=== PATIENT | male | born 1995 | race African-American/Black ===

== ENCOUNTER 2023-03-05 10:18 | Emergency (ER) | payer SELFPAY ==
[2023-03-05 10:30] VITALS: BP 143/86; PULSE 48; RESP 16; TEMP 36.2; O2SAT 100
[2023-03-05 10:56] LABS: Basophils Percent Auto 0.5 % (0.2-1.2); Eosinophils Percent Auto 0.4 % (0-4.4); Hematocrit 49.6 % (42.0-52.0); Hemoglobin 16.3 g/dL (14.0-18.0); Immature Granulocyte Absolute 0.04 K/mm3 (0.00-0.031); Immature Granulocyte Percent A 0.5 % (0-0.5); Lymphocytes Absolute Auto 2.23 K/mm3 (0.9-3.2); Lymphocytes Percent Auto 27.3 % (18.3-44.2); Mean Corpuscular HGB Conc 32.9 g/dl (32-36); Mean Corpuscular Volume 88.3 fl (80-100); Mean Platelet Volume 9.1 fl (7.4-10.4); Monocytes Absolute Auto 0.5 K/mm3 (0.1-0.6); Monocytes Percent Auto 5.5 % (2.6-8.5); Neutrophils Absolute Auto 5.4 K/mm3 (1.3-6.7); Neutrophils Percent Auto 65.8 % (45.5-73.1); Platelet Count Result 366 k/mm3 (150-375); Red Blood Count 5.62 M/mm3 (4.6-6.20); Red Cell Distribution Width 13.2 % (11.5-14.5); White Blood Count 8.2 K/mm3 (4.5-10.0)
[2023-03-05 10:59] LABS: Alanine Aminotransferase 28 U/L (6-50); Albumin Level 5.4 g/dL (3.5-5.1); Alkaline Phosphatase 76 U/L (38-126); Anion Gap 12 mmol/L (8-16); Aspartate Amino Transferase 36 U/L (17-59); Bilirubin,Total 0.9 mg/dL (0.2-1.3); Blood Urea Nitrogen 11 mg/dL (9-20); Calcium 9.9 mg/dL (8.4-10.2); Carbon Dioxide 26 mmol/L (22-30); Chloride 102 mmol/L (98-107); Estimated CRCL calculation 79 ml/min; Estimated Glomerular Filt Rate > 60; Glucose 84 mg/dL (65-110); Lipase 59 U/L (23-300); Potassium 4.3 mmol/L (3.4-5.0); Sodium 140 mmol/L (137-145)
--- NOTE | 2023-03-05 12:08 | ED.ABDPAIN ---
HPI - Abdominal Pain General Chief Complaint: Abdominal Pain Stated Complaint: abd pain Time Seen by Provider: 03/05/23 12:02 History of Present Illness HPI narrative: Patient is a 27-year-old male who presents ER with cramping abdominal pain. Began yesterday evening. Located in the left upper quadrant. No radiation into the groin. Associate with nausea vomiting as well as diarrhea. No known sick contacts. No blood in stool. Denies fevers or chills or sweats. No alleviating factors. Related Data Allergies Allergy/AdvReac Type Severity Reaction Status Date / Time No Known Allergies Allergy Verified 03/05/23 13:11 Review of Systems Review of Systems: All systems reviewed & are unremarkable except as noted in HPI and below Constitutional: Constitutional: Denies chills, Denies fatigue and Denies fever(s) Cardiovascular: Cardiovascular: Denies chest pain and Denies rapid heart rate Respiratory: Respiratory: Denies cough and Denies dyspnea Gastrointestinal: Gastrointestinal: Reports abdominal pain, Reports diarrhea, Reports nausea and Reports vomiting Genitourinary: Genitourinary: Denies hematuria, Denies dysuria, Denies testicular pain and Denies urinary frequency PMFSH Past Medical History Medical History (Updated 03/05/23 @ 15:25 by Kenney Moran MD) Healthy adult male Surgical History Surgical History (Updated 03/05/23 @ 15:25 by Kenney Moran MD) No history of previous surgery Exam Narrative: GENERAL: Well-appearing, well-nourished, and in no acute distress. HEAD: Normocephalic, atraumatic. ENT: Mucous membranes moist. CHEST: Clear to auscultation. No respiratory distress. HEART: Regular rate and rhythm. Normal peripheral pulses. ABDOMEN: Soft, nontender, nondistended. EXTREMITIES: Normal range of motion. No edema. SKIN: Warm, dry, no rash. NEURO: Alert and oriented x3. PSYCH: Normal mood and affect. Course Course Emergency Course: Symptoms resolved with IV fluids/morphine/Zofran. Labs reviewed and patient with benign abdominal exam. Premier appropriate for discharge home. Suspect gastroenteritis and patient has been educated about treatment plan. Vital Signs Vital signs: Vital Signs Temperature 97.1 F L 03/05/23 10:30 Pulse Rate 48 L 03/05/23 10:30 Respiratory Rate 16 07/20/23 10:30 Blood Pressure 143/86 H 03/05/23 10:30 Pulse Oximetry 100 03/05/23 10:30 Oxygen Delivery Room Air 03/05/23 10:30 Temperature 97.1 F L 03/05/23 10:30 Pulse Rate 48 L 03/05/23 10:30 Respiratory Rate 16 03/05/23 10:30 Blood Pressure 143/86 H 03/05/23 10:30 Pulse Oximetry 100 03/05/23 10:30 Oxygen Delivery Room Air 03/05/23 10:30 MDM - Abdominal Pain Lab Data 03/05/23 10:42 03/05/23 10:42 Labs: Lab Results 03/05/23 03/05/23 Range/Units 10:42 12:23 WBC 8.2 (4.5-10.0) K/mm3 RBC 5.62 (4.6-6.20) M/mm3 Hgb 16.3 (14.0-18.0) g/dL Hct 49.6 (42.0-52.0) % MCV 88.3 (80-100) fl MCH 29.0 (26-34) pg MCHC 32.9 (32-36) g/dl RDW 13.2 (11.5-14.5) % Plt Count 366 (150-375) k/mm3 MPV 9.1 (7.4-10.4) fl Immature Gran % (Auto) 0.5 (0-0.5) % Neut % (Auto) 65.8 (45.5-73.1) % Lymph % (Auto) 27.3 (18.3-44.2) % [place] % (Auto) 5.5 (2.6-8.5) % Eos % (Auto) 0.4 (0-4.4) % Baso % (Auto) 0.5 (0.2-1.2) % Lymph # (Auto) 2.23 (0.9-3.2) K/mm3 [place] # (Auto) 0.5 (0.1-0.6) K/mm3 Eos # (Auto) 0.0 (0-0.3) K/mm3 Baso # (Auto) 0.0 (0.0-0.1) K/mm3 Abs Immat Gran (auto) 0.04 H (0.00-0.031) K/mm3 Absolute Neuts (auto) 5.4 (1.3-6.7) K/mm3 Absolute Nucleated RBC 0.0 (0.0-0.012) K/mm3 Nucleated RBC % 0.0 (0.0-0.2) % Sodium 140 (137-145) mmol/L Potassium 4.3 (3.4-5.0) mmol/L Chloride 102 (98-107) mmol/L Carbon Dioxide 26 (22-30) mmol/L Anion Gap 12 (8-16) mmol/L BUN 11 (9-20) mg/dL Creatinine 1.10 (0.7-1.3) mg/dL Estim Creat Clear C
[2023-03-05 12:33] LABS: Appearance Urine Clear (Clear); Bacteria Urine None Seen /hpf; Bilirubin Urine Negative (Negative); Blood Urine Negative (Negative); Color Urine Yellow (Yellow); Glucose Urine UA Negative (Negative); Ketones Urine 3+ mg/dL (Negative); Leukocyte Esterase Ur Negative LEU/UL (Negative); Nitrate Urine Negative (Negative); Non Pathogenic Casts 0-2; Protein Urine 2+ mg/dL (Negative); RBC Urine 0-2 /hpf (0-2); Specific Grav Ur 1.029 (1.001-1.035); Squamous Epithelial Cell Urine None seen /hpf (Few); WBC Urine 0-5 /hpf; pH Urine 5.5 (5.0-9.0)
[2023-03-05 12:40] LABS: Add Urine Microscopic? YES
[2023-03-05] MEDS: SODIUM CHLORIDE 0.9% IV 1,000 ML 999 ML IV CONT (13:12)
[2023-03-05] MEDS: ONDANSETRON INJ 4 MG/2 ML VIAL IV PUSH (13:13)
[2023-03-05] MEDS: Please add drug allergy info to patient profile. XX (13:13)
[2023-03-05] MEDS: MORPHINE SULFATE (*CRX) 4 MG/ML INJ IV PUSH (13:13)
== END 2023-03-05 15:35 | disposition home or self-care (01) ==
PROVIDERS: Emergency Medicine; Emergency Provider Emergency Medicine
DX: K52.9 Noninfective gastroenteritis and colitis, unspecified (principal)
CPT/HCPCS: 36415; 80053; 81001; 83690; 85025; 96361; 96374; 96375; 99284; J2270; J2405; J7030

== ENCOUNTER 2023-03-14 21:11 | Emergency (ER) | payer SELFPAY ==
--- NOTE | ~2023-03-14 | CT_ITS ---
EXAMINATION: CT abdomen pelvis w con DATE: 03/15/2023 02:04 INDICATION: Left abdominal pain for one week. Nausea, vomiting, constipation TECHNIQUE: Computed tomography (CT) of the abdomen and pelvis was performed with 100 CC Omnipaque 350 intravenous contrast. Automated exposure control and iterative reconstruction technique were employe d. Exam dose: 211.86 mGy-cm total exam DLP. COMPARISON: None. FINDINGS: The lung bases are clear. Normal heart size. No pericardial or pleural effusion. The liver, gallbladder, bile ducts, spleen, pancreas, pancreatic duct, and adrenal glands and kidneys are unremarkable except for probable small cysts upper pole left renal cyst. No urinary tract calcul us or hydroureteronephrosis is detected. The urinary bladder is unremarkable. There are multiple nondilated fluid containing small bowel segments in the lower abdomen and pelvic a petra. No bowel obstruction, bowel wall thickening, pneumatosis or intraperitoneal free air is detected . No appendiceal dilatation or inflammatory change in the right lower quadrant is noted. Included skeletal structures are unremarkable. IMPRESSION: Nondilated fluid containing small bowel segments which may be secondary to enteritis or mild adynamic ileus. No evidence of appendicitis is detected Reviewed, dictated and finalized at [facility]. Reviewed, dictated and finalized at [facility]. IMPRESSION: Nondilated fluid containing small bowel segments which may be seco ndary to enteritis or mild adynamic ileus. No evidence of appendicitis is detec franco
[2023-03-14 21:30] VITALS: BP 157/84; PULSE 86; RESP 14; TEMP 36.9; O2SAT 100
[2023-03-15] VITALS: BP 142/87; PULSE 60; RESP 14; O2SAT 100
[2023-03-15 00:18] LABS: Basophils Percent Auto 0.4 % (0.2-1.2); Eosinophils Percent Auto 0.3 % (0-4.4); Hematocrit 43.1 % (42.0-52.0); Hemoglobin 14.2 g/dL (14.0-18.0); Immature Granulocyte Absolute 0.02 K/mm3 (0.00-0.031); Immature Granulocyte Percent A 0.3 % (0-0.5); Lymphocytes Absolute Auto 2.08 K/mm3 (0.9-3.2); Lymphocytes Percent Auto 27.3 % (18.3-44.2); Mean Corpuscular HGB Conc 32.9 g/dl (32-36); Mean Corpuscular Hemoglobin 28.8 pg (26-34); Mean Corpuscular Volume 87.4 fl (80-100); Mean Platelet Volume 9.2 fl (7.4-10.4); Monocytes Absolute Auto 0.6 K/mm3 (0.1-0.6); Monocytes Percent Auto 7.5 % (2.6-8.5); Neutrophils Absolute Auto 4.9 K/mm3 (1.3-6.7); Neutrophils Percent Auto 64.2 % (45.5-73.1); Platelet Count Result 398 k/mm3 (150-375); Red Blood Count 4.93 M/mm3 (4.6-6.20); Red Cell Distribution Width 12.6 % (11.5-14.5); White Blood Count 7.6 K/mm3 (4.5-10.0)
[2023-03-15 00:33] LABS: Alanine Aminotransferase 26 U/L (6-50); Albumin Level 4.7 g/dL (3.5-5.1); Alkaline Phosphatase 60 U/L (38-126); Anion Gap 10 mmol/L (8-16); Aspartate Amino Transferase 31 U/L (17-59); Bilirubin,Total 0.5 mg/dL (0.2-1.3); Blood Urea Nitrogen 6 mg/dL (9-20); Calcium 9.2 mg/dL (8.4-10.2); Carbon Dioxide 25 mmol/L (22-30); Chloride 101 mmol/L (98-107); Estimated CRCL calculation 99 ml/min; Estimated Glomerular Filt Rate > 60; Glucose 85 mg/dL (65-110); Lipase 44 U/L (23-300); Potassium 4.2 mmol/L (3.4-5.0); Sodium 136 mmol/L (137-145)
[2023-03-15] MEDS: PANTOPRAZOLE SODIUM IV 40 MG VIAL IV PUSH (01:35)
[2023-03-15] MEDS: ONDANSETRON INJ 4 MG/2 ML VIAL IV PUSH (01:35)
[2023-03-15] MEDS: DICYCLOMINE HCL INJ 20 MG/2 ML VIAL IM (01:35)
[2023-03-15] MEDS: SODIUM CHLORIDE 0.9% IV 1,000 ML 999 ML IV CONT (01:35)
--- NOTE | 2023-03-15 01:52 | PC.NURSE ---
Patient in CT at this time.
--- NOTE | 2023-03-15 02:51 | ED.GENADULT ---
HPI - General Adult General Chief complaint: Abdominal Pain Stated complaint: abd pain Time Seen by Provider: 03/15/23 00:55 History of Present Illness HPI narrative: Patient a 27-year-old gentleman who presents emerged part with chief complaint of abdominal pain. Patient reports that he has been having abdominal pain for a couple of weeks after he had an episode of gastroenteritis. Patient was seen in the emergency department at that time did not have helical imaging patient reports that since then he has been having pain in the left side of his abdomen reports is not improved by anything. Related Data Allergies Allergy/AdvReac Type Severity Reaction Status Date / Time No Known Allergies Allergy Verified 03/15/23 01:52 Review of Systems Review of Systems: A 10 system review of systems was completed on the patient and is negative except for what is stated in the HPI. Nursing and ancillary documentation was reviewed. [facility] Past Medical History Medical History Healthy adult male Surgical History Surgical History No history of previous surgery Exam Narrative: GENERAL: Well-appearing, well-nourished, and in no acute distress. HEAD: Normocephalic, atraumatic. EYES: PERRLA and EOMI. ENT: Nares clear, no rhinorrhea or epistaxis. Mucous membranes moist. NECK: Supple. CHEST: Clear to auscultation. No respiratory distress. HEART: Regular rate and rhythm. No murmur heard. Normal peripheral pulses. ABDOMEN: Soft, tender to palpation in the left side of the abdomen, nondistended, normal active bowel sounds. EXTREMITIES: Normal range of motion. No edema. SKIN: Warm, dry, no rash. NEURO: No focal deficits. Alert and oriented x3. PSYCH: Normal mood and affect. Course Vital Signs Vital signs: Vital Signs Temperature 36.9 C 03/14/23 21:30 Pulse Rate 86 03/14/23 21:30 Respiratory Rate 14 03/14/23 21:30 Blood Pressure 157/84 H 03/14/23 21:30 Pulse Oximetry 100 03/14/23 21:30 Oxygen Delivery Room Air 03/14/23 21:30 Temperature 36.9 C 03/14/23 21:30 Pulse Rate 44 L 03/15/23 03:12 Respiratory Rate 18 03/15/23 03:12 Blood Pressure 107/62 03/15/23 03:12 Pulse Oximetry 100 03/15/23 03:12 Oxygen Delivery Room Air 03/14/23 21:30 Medical Decision Making MDM Narrative Medical decision making narrative: Differential diagnosis includes appendicitis, colitis, diverticulitis Oratory studies were obtained which showed a normal CBC electrolytes are within normal limits urinalysis showed no evidence of UTI CT scan of the abdomen pelvis showed no acute findings Vital Signs Vital Signs: Vital Signs Temperature 36.9 C 03/14/23 21:30 Pulse Rate 86 03/14/23 21:30 Respiratory Rate 14 03/14/23 21:30 Blood Pressure 157/84 H 03/14/23 21:30 Pulse Oximetry 100 03/14/23 21:30 Oxygen Delivery Room Air 03/14/23 21:30 Temperature 36.9 C 03/14/23 21:30 Pulse Rate 44 L 03/15/23 03:12 Respiratory Rate 18 03/15/23 03:12 Blood Pressure 107/62 03/15/23 03:12 Pulse Oximetry 100 03/15/23 03:12 Oxygen Delivery Room Air 03/14/23 21:30 Lab Data 03/14/23 23:59 03/14/23 23:59 Labs: Lab Results 03/14/23 03/15/23 Range/Units 23:59 03:10 WBC 7.6 (4.5-10.0) K/mm3 RBC 4.93 (4.6-6.20) M/mm3 Hgb 14.2 (14.0-18.0) g/dL Hct 43.1 (42.0-52.0) % MCV 87.4 (80-100) fl MCH 28.8 (26-34) pg MCHC 32.9 (32-36) g/dl RDW 12.6 (11.5-14.5) % Plt Count 398 H (150-375) k/mm3 MPV 9.2 (7.4-10.4) fl Immature Gran % (Auto) 0.3 (0-0.5) % Neut % (Auto) 64.2 (45.5-73.1) % Lymph % (Auto) 27.3 (18.3-44.2) % [place] % (Auto) 7.5 (2.6-8.5) % Eos % (Auto) 0.3 (0-4.4) % Baso % (Auto) 0.4 (0.2-1.2) % Lymph # (Auto) 2.08 (0.9-3.2) K/mm3 [place] # (Auto) 0.6
[2023-03-15 03:12] VITALS: BP 107/62; PULSE 44; RESP 18; O2SAT 100
[2023-03-15 03:40] LABS: Appearance Urine Clear (Clear); Bacteria Urine None Seen /hpf; Bilirubin Urine Negative (Negative); Blood Urine Negative (Negative); Color Urine Yellow (Yellow); Glucose Urine UA Negative (Negative); Ketones Urine 2+ mg/dL (Negative); Leukocyte Esterase Ur Negative LEU/UL (Negative); Nitrate Urine Negative (Negative); Non Pathogenic Casts 0-2; Protein Urine Trace mg/dL (Negative); RBC Urine 0-2 /hpf (0-2); Squamous Epithelial Cell Urine None seen /hpf (Few); WBC Urine 0-5 /hpf
[2023-03-15 03:58] LABS: Add Urine Microscopic? YES
[2023-03-15 05:53] VITALS: BP 113/78; PULSE 47; RESP 19; O2SAT 100
== END 2023-03-15 05:55 | disposition home or self-care (01) ==
PROVIDERS: Emergency Provider Emergency Medicine
DX: K29.70 Gastritis, unspecified, without bleeding (principal)
CPT/HCPCS: 36415; 74177; 80053; 81001; 83690; 85025; 96361; 96372; 96374; 96375; 99284; C9113; J0500; J2405; J7030; Q9967

== ENCOUNTER 2023-09-14 11:40 | Emergency (ER) | payer MEDICAID, SELFPAY ==
--- NOTE | ~2023-09-14 | XR_ITS ---
XR chest 2V DATE: 09/14/2023 14:28 INDICATION: Cough, fever. TECHNIQUE: PA and lateral views COMPARISON: None FINDINGS: Normal heart size. No hilar or mediastinal enlargement. No pulmonary infiltrate or consol idation, pulmonary vascular congestion or pleural effusion or pneumothorax. Included skeletal struct ures appear normal. IMPRESSION: No active cardiopulmonary disease Reviewed, dictated and finalized at [facility]. ING SPECIALIST
[2023-09-14 11:59] VITALS: BP 122/75; PULSE 66; RESP 16; TEMP 36.8; O2SAT 100
--- NOTE | 2023-09-14 13:23 | ED.GENADULT ---
HPI - General Adult General Chief complaint: Upper Respiratory Infection <Hellen Nunez December, RIG SITE ENGINEER - Last Filed: 09/14/23 13:29> Stated complaint: flu B+ feeling dehydrated <Hellen Nunez December, RIG SITE ENGINEER - Last Filed: 09/14/23 13:29> Time Seen by Provider: 09/14/23 14:30 <Hellen Nunez December, RIG SITE ENGINEER - Last Filed: 09/14/23 13:29> Focused HPI: 1322 Jared Norton is a 27 y/o male who presents with reports of being diagnosed with Flu B 4 days ago, and not feeling any better/ no appetite / productive cough - He states he did have some nausea vomiting a couple days ago but hasn't been able to eat or drink anything today - He states has been running fevers the past few days - he has not taken any medications today He tried to go to work today but felt like he was going to pass out from dehydration and came here. GENERAL: Well-appearing, and in no acute distress. HEAD: Normocephalic, atraumatic. CHEST: Clear to auscultation. ?No respiratory distress. HEART: Regular rate and rhythm.? NEURO: ?Alert and oriented x3. Patient screened in triage and initial orders placed.? ?Additional care and disposition to be based upon?diagnostic testing and treatment. <Ti Velásquez MD - Last Filed: 09/14/23 19:01> History of Present Illness HPI narrative: Focused HPI: 1322 Jared Norton is a 27 y/o male who presents with reports of being diagnosed with Flu B 4 days ago, and not feeling any better/ no appetite / productive cough - He states he did have some nausea vomiting a couple days ago but hasn't been able to eat or drink anything today - He states has been running fevers the past few days - he has not taken any medications today He tried to go to work today but felt like he was going to pass out from dehydration and came here. GENERAL: Well-appearing, and in no acute distress. HEAD: Normocephalic, atraumatic. CHEST: Clear to auscultation. ?No respiratory distress. HEART: Regular rate and rhythm.? NEURO: ?Alert and oriented x3. Patient screened in triage and initial orders placed.? ?Additional care and disposition to be based upon?diagnostic testing and treatment. <Hellen Diaz RIG SITE ENGINEER - Last Filed: 09/14/23 13:29> 27-year-old male presents emergency department for evaluation of persistent influenza symptoms. Patient was diagnosed with influenza a on the 03/02. Patient has not been taking Tylenol or ibuprofen for the symptoms. Patient states he still having body aches fever and some nausea and vomiting. <Ti Velásquez MD - Last Filed: 09/14/23 19:01> Related Data Allergies/adverse reactions: Allergies Allergy/AdvReac Type Severity Reaction Status Date / Time No Known Allergies Allergy Verified 09/14/23 11:41 <Hellen Nunez December RIG SITE ENGINEER - Last Filed: 09/14/23 13:29> Review of Systems Review of Systems: All systems reviewed & are unremarkable except as noted in HPI and below <Ti Velásquez MD - Last Filed: 09/14/23 19:01> PMFSH Past Medical History Medical History: Medical History Healthy adult male <Hellen Diaz RIG SITE ENGINEER - Last Filed: 09/14/23 13:29> Surgical History Surgical History: Surgical History No history of previous surgery <Hellen Diaz RIG SITE ENGINEER - Last Filed: 09/14/23 13:29> Exam Narrative: APPEARANCE: Ill-appearing HEAD: normocephalic, atraumatic. EYES: PERRLA/EOMI, conjunctivae clear. NOSE: Normal no drainage EARS:TMS clear with good light reflex. THROAT: Pharynx clear, no exudate. NECK: Supple. No adenopathy, no masses. RESPIRATORY: Airway patent, respirations nonlabored. Clear to auscultation bilaterally, no rales, rhonchi, wheezing. CARDIOVASCULAR: Regular rate and rhythm without murmurs rubs or gallops. ABDOMINAL: Soft, nontender, nondistended, normal bowel sounds MUSCULOSKELETAL: Moves all extremities. Strength/ROM intact, No edema, No calf tenderness. NEURO: Alert.
[2023-09-14] MEDS: KETOROLAC 30 MG/ML VIAL (*BKC) IV PUSH (14:19)
[2023-09-14] MEDS: SODIUM CHLORIDE 0.9% IV 1,000 ML 999 ML IV CONT (14:19)
[2023-09-14] MEDS: ONDANSETRON INJ 4 MG/2 ML VIAL IV PUSH (14:20)
[2023-09-14 14:21] LABS: Basophils Percent Auto 0.3 % (0.2-1.2); Eosinophils Percent Auto 0.1 % (0-4.4); Hematocrit 45.3 % (42.0-52.0); Immature Granulocyte Absolute 0.05 K/mm3 (0.00-0.031); Immature Granulocyte Percent A 0.5 % (0-0.5); Lymphocytes Absolute Auto 2.49 K/mm3 (0.9-3.2); Lymphocytes Percent Auto 22.9 % (18.3-44.2); Mean Corpuscular HGB Conc 33.1 g/dl (32-36); Mean Corpuscular Hemoglobin 28.6 pg (26-34); Mean Corpuscular Volume 86.3 fl (80-100); Monocytes Absolute Auto 0.9 K/mm3 (0.1-0.6); Monocytes Percent Auto 8.6 % (2.6-8.5); Neutrophils Absolute Auto 7.4 K/mm3 (1.3-6.7); Neutrophils Percent Auto 67.6 % (45.5-73.1); Platelet Count Result 348 k/mm3 (150-375); Red Blood Count 5.25 M/mm3 (4.6-6.20); Red Cell Distribution Width 12.8 % (11.5-14.5); White Blood Count 10.9 K/mm3 (4.5-10.0)
[2023-09-14 14:31] LABS: Anion Gap 10 mmol/L (8-16); Blood Urea Nitrogen 8 mg/dL (9-20); Calcium 9.2 mg/dL (8.4-10.2); Carbon Dioxide 26 mmol/L (22-30); Chloride 101 mmol/L (98-107); Estimated CRCL calculation 148 ml/min; Estimated Glomerular Filt Rate > 60; Glucose 81 mg/dL (65-110); Potassium 3.8 mmol/L (3.4-5.0); Sodium 137 mmol/L (137-145)
[2023-09-14 14:43] LABS: Atypical Lymphocytes Present; Platelet Estimate Adequate (Adequate); Schistocytes None Seen (NORMAL)
[2023-09-14 15:32] VITALS: O2SAT 98
[2023-09-14 15:33] LABS: Influenza A QL RT-PCR Negative (Negative); Influenza B QL RT-PCR Positive (Negative); RSV RNA, RT-PCR Negative (Negative); SARS-CoV-2 RNA PCR Negative (Negative)
== END 2023-09-14 15:53 | disposition home or self-care (01) ==
PROVIDERS: Nurse Practitioner Family; Emergency Provider Emergency Medicine
DX: J10.1 Influenza due to other identified influenza virus with other respiratory manifestations (principal); Z20.822 Contact with and (suspected) exposure to COVID-19
CPT/HCPCS: 36415; 71046; 80048; 85025; 87637; 96361; 96374; 96375; 99284; J1885; J2405; J7030

== ENCOUNTER 2025-07-26 11:10 | Emergency (ER) | payer OTHER, SELFPAY ==
--- NOTE | ~2025-07-26 | XR_ITS ---
EXAMINATION: XR toe 1st LT min 2V DATE: 07/26/2025 11:44 INDICATION: Injury TECHNIQUE: Left great toe x-rays were obtained. COMPARISON: None. Impression: No fracture lucency. 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 No radiopaque foreign body seen. Reviewed, dictated and finalized at [facility]. ATION SPEC Impression: No fracture lucency. Moderately severe osteoarthritic appearing degenerative ch anges at the great toe MTP joint. No radiopaque foreign body seen.
[2025-07-26 11:11] VITALS: BP 131/56; PULSE 65; RESP 20; TEMP 36.6; O2SAT 100
--- NOTE | 2025-07-26 12:21 | ED.LOWEXIN ---
HPI - Extremity Injury (Lower) General Chief Complaint: Extremity Injury, Lower Stated Complaint: L big toe pain Time Seen by Provider: 07/26/25 11:35 Source: patient Mode of arrival: ambulatory Limitations: no limitations History of Present Illness HPI Narrative: Patient is a 29-year-old male who presents the ED with report of left 1st toe pain. Patient reports he was attempting to step up on a elevated surface when his left 1st toe bent backwards. Complaining of pain to his left 1st toe. Denies numbness. Denies any other injuries. Is able to ambulate. Related Data Allergies Allergy/AdvReac Type Severity Reaction Status Date / Time No Known Allergies Allergy Verified 07/26/25 11:11 Review of Systems Review of Systems: All systems reviewed & are unremarkable except as noted in HPI. All systems reviewed & are unremarkable except as noted in HPI and below PMFSH Past Medical History Medical History Healthy adult male Surgical History Surgical History No history of previous surgery Exam Narrative: GENERAL: Well appearing, well-nourished, non-toxic, in no acute distress. HEAD: Normocephalic, atraumatic. RESPIRATORY: Airway patent, respirations nonlabored. CARDIOVASCULAR: Regular rate and rhythm. Pedal pulses intact and easily palpable MUSCULOSKELETAL: Moves all extremities. No gross deformities. Mild tenderness to palpation over the left 1st toe/MCP region without any significant swelling. SKIN: Warm, dry, normal color. NEURO: A&O X3. Speech clear. Cranial nerves II-XII grossly intact. Steady gait. No ataxic movements. PSYCHIATRIC: Appropriate mood and affect. Normal interaction. Course Vital Signs Vital signs: Vital Signs Temperature 97.9 F 07/26/25 11:11 Pulse Rate 65 07/26/25 11:11 Respiratory Rate 20 07/26/25 11:11 Blood Pressure 131/56 L 07/26/25 11:11 Pulse Oximetry 100 07/26/25 11:11 Oxygen Delivery Room Air 07/26/25 11:11 Temperature 97.9 F 07/26/25 11:11 Pulse Rate 65 07/26/25 11:11 Respiratory Rate 20 07/26/25 11:11 Blood Pressure 131/56 L 12/10/25 11:11 Pulse Oximetry 100 07/26/25 11:11 Oxygen Delivery Room Air 07/26/25 11:11 MDM MDM Narrative Medical decision making narrative: Patient?s injury is consistent with musculoskeletal etiology. No signs of neurologic or vascular compromise on physical examination. Compartments are soft without signs of compartment syndrome. XR L left 1st toe negative for fracture. Does show some arthritic changes to MCP region. Pain is consistent with toe sprain. Patient is felt to be stable for discharge home and further outpatient management and treatment. Offered postop shoe, however patient declined. Patient had toes ashlee-taped together. Discussed rice therapy, Tylenol/ibuprofen for pain. Discussed return precautions. Given work note. Discharged in stable condition. Differential Diagnosis Differential Diagnosis: toe sprain, toe fx, foot fx, paronychia Medical Records I have reviewed the following patient records and this information was taken into consideration when formulating the assessment and plan.: previous labs, previous ER visits, previous hospitalizations and previous clinic visits Imaging Data Attestation: I personally reviewed and interpreted this imaging study as follows: Radiologist's impression: ITS Impressions Toe X-Ray 07/26/25 11:50 Impression: No fracture lucency. 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 No radiopaque foreign body seen. Discharge Plan Discharge Clinical Impression: Sprain of toe, great, left Qualifiers: Encounter type: initial encounter Qualified Code(s): S93.502A - Unspecified sprain of left great toe, initial encounter Patient Disposition: Home Condition: Stable Instructions: Antibiotic Form, Foot Contusion (ED) Additional Instructions: Utilize ashlee taping to toes to keep toe stabilize. You will likely be sore over the next few days. Recommend Tylenol/ibuprofen as needed for pain. Return to the ED for new or worsening concerns. Patient Language: Welsh Prescriptions: No Action dicyclomine 20 mg tablet 20 mg PO QID Qty: 20 0RF ondansetron 4 mg tablet,disintegrating 4 mg PO Q6H PRN (Reason: nausea and vomiting) Qty: 10 0RF ondansetron 4 mg tablet,disintegrating 4 mg PO Q8H PRN (Reason: nausea and vomiting) Qty: 14 0RF pantoprazole [Protonix] 40 mg tablet,delayed release (DR/EC) 40 mg PO HS 28 Days Qty: 28 0RF Follow-up/Referrals: PHYSICIAN,MANAGER FOOD [employer]EVERAGE [Primary Care Provider, Internal Medicine] Stand Alone Forms: Work/School Release IP Time of Disposition: 12:24
== END 2025-07-26 12:35 | disposition home or self-care (01) ==
PROVIDERS: Emergency Provider Physician Assistant
DX: S93.502A Unspecified sprain of left great toe, initial encounter (principal); X58.XXXA Exposure to other specified factors, initial encounter
CPT/HCPCS: 73660; 99283